=== PATIENT | female | born 1985 | race Caucasian/White ===

== ENCOUNTER 2020-04-22 07:00 | Emergency (ER) | payer BC ==
[2020-04-22] MEDS ORDERED: Alum Hydrox/Mag Hydrox/Simeth 15 ML, Lidocaine 2% 5 ML PO ONE ×2 (07:42)
[2020-04-22] MEDS ORDERED: Lactated Ringers 1,000 ML IV ONE (07:42)
[2020-04-22] MEDS ORDERED: Morphine 2 MG/ML SYRINGE IVPUSH ONE (07:43)
[2020-04-22] MEDS ORDERED: Famotidine 20 MG/2 ML SDV IVPUSH ONE (07:43)
[2020-04-22] MEDS ORDERED: Ondansetron 4 MG/2 ML SDV IVPUSH ONE (07:57)
[2020-04-22 08:25] LABS: CARBON DIOXIDE,CO2 28.9 mmol/L (21.0-32.0); POTASSIUM,K 3.4 mmol/L (3.5-5.1)
--- NOTE | 2020-04-22 08:55 | EDM.PDOC ---
ED HPI GENERAL MEDICAL PROBLEM - General Chief Complaint: Abdominal Pain Stated Complaint: ABDOMINAL PAIN Time Seen by Provider: 04/22/20 07:21 - History of Present Illness INITIAL COMMENTS - FREE TEXT/NARRATIVE: CHIEF COMPLAINT(S): Abdominal pain HISTORY OF PRESENT ILLNESS: This is a 34-year-old woman without any past medical history who comes to the emergency department with a chief complaint of abdominal pain. The patient states that for the last 2 days she has been experiencing epigastric and left upper quadrant pain which she describes as sharp and intermittent throbbing. She rates the pain as 8 out of [address] ates that she did have some associated nausea and vomiting x2 last night but did not have any bilious emesis or hematemesis. She states that she does not know any aggravating symptoms except that the pain worsens when she lies down. She denies any relieving symptoms. She has not yet tried any pain medication. She denies any fever, chills, diarrhea, melena or hematochezia. She states that no one else in the home is having the symptoms. She denies any vaginal bleeding, vaginal discharge, dysuria or hematuria. She states that she has never had this before. REVIEW OF SYSTEMS: Constitutional: Denies fever, chills. Eyes: Denies eye pain Ears, Nose, Mouth, & Throat: Denies earache Cardiovascular: Denies chest pain Respiratory: Denies shortness of breath Gastrointestinal: Positive for epigastric abdominal pain, nausea, vomiting. Denies diarrhea, hematochezia, hematemesis, bilious emesis Genitourinary: Denies hematuria dysuria, vaginal bleeding, vaginal discharge Skin:Denies a rash MSK: Denies joint pain Neurological: Denies blurred vision Psychiatric: Denies depression PAST MEDICAL HISTORY: As per history of present illness and as reviewed below otherwise noncontributory. SURGICAL HISTORY: As per history of present illness and as reviewed below otherwise noncontributory. LMP: 3 weeks ago SOCIAL HISTORY: As per history of present illness and as reviewed below otherwise noncontributory. FAMILY HISTORY: As per history of present illness and as reviewed below otherwise noncontributory. EXAMINATION OF ORGAN SYSTEMS/BODY AREAS: Constitutional: Blood pressure is 136/78, heart rate 81, respiratory rate 18 with an oxygen saturation 9 9% on room air. Temperature 36.7 General: Overall well-appearing woman who is in no acute distress. Psychiatric: Appropriate mood and affect. Eyes: No scleral icterus or conjunctival erythema ENMT: Moist mucous membranes. No pharyngeal erythema Cardiovascular: Regular, rate, and rhythm. No gallops, murmurs, or rubs. Bilateral upper extremity pulses symmetric and intact. No peripheral edema. No JVD. Respiratory: Lungs clear to auscultation bilaterally. No wheezes, rales, or rhonchi. Gastrointestinal: Soft, nondistended, tenderness to palpation in the right upper quadrant, epigastric region and left upper quadrant. No rebound or guarding. Negative Williamson's and McBurney's. Normoactive bowel sounds Genitourinary: No suprapubic tenderness no CVA tenderness Musculoskeletal: Normal range of motion. Skin: No lesions or abrasions. Neurological: Alert, GCS 15 strength and sensation grossly intact MEDICAL DECISION MAKING AND COURSE IN THE ED WITH INTERPRETATION/REVIEW OF DIAGNOSTIC STUDIES: This is a 34-year-old woman without any significant past medical history who comes to the emergency department with upper quadrant abdominal pain with normal vital signs. At this time differential includes gastritis, peptic ulcer disease, pancreatitis or cholecystitis. The patient is well-appearing with no Williamson sign. We will treat the patient symptomatically with 2 mg of IV morphine, 1 L of normal saline, GI cocktail, and famotidine. Will obtain labs including urine hCG, urinalysis, CBC, CMP, and lipase. We will reevaluate the patient. Laboratory: CBC is unremarkable. CMP reveals hypokalemia at 3.4, mild elevation in creatinine at 1.1, hyperglycemia at 118. AST, ALT, alkaline phosphatase and lipase are all normal. hCG is negative Urinalysis was a clean catch and was trace for leukocyte esterase, negative for nitrites, and negative for blood. WBC count 0-2. Interpretation: negative. On reevaluation, the patient reported improvement. At this time I did discuss the results of her work-up. I encouraged her to maintain adequate p.o. hydration given the elevated creatinine. In addition I did discuss with her that she should use [id number] famotidine 20 mg twice a day and Maalox as needed for pain. In addition I discussed that this could be early gallbladder disease and if she has any worsening of the right upper quadrant pain is unable to tolerate p.o. or develops a fever she needs to return to the emergency department. She was amenable to discharge at this time and had no further questions DISPOSITION: The patient was discharged home in stable condition. The patient will follow up with primary care physician in 1 week CONDITION: Fair PROCEDURES: None FINAL IMPRESSION(S)/DIAGNOSES: 1. Acute abdominal pain, likely gastritis Per Bee M.D. Abdominal Pain Score (Numeric/FACES): 8 - Related Data Allergies Allergy/AdvReac Type Severity Reaction Status Date / Time No Known Allergies Allergy Verified 04/22/20 07:20 Home Meds: Home Meds Famotidine [Pepcid] 20 mg PO BID #60 tablet 04/22/20 [Rx] Past Medical History - Past Health History Medical/Surgical History: Denies Medical/Surgical History Social & Family History - Family History Family Medical History: No Pertinent Family History - Tobacco Use Tobacco Use Status *Q: Never Tobacco User - Caffeine Use Caffeine Use: Reports: None - Recreational Drug Use Recreational Drug Use: No ED ROS GENERAL - Review of Systems Review Of Systems: See Below ED EXAM, GENERAL - Physical Exam Exam: See Below Course - Vital Signs Last Recorded V/S: Last Vital Signs Temp 36.7 C 04/22/20 07:21 Pulse 81 04/22/20 09:10 Resp 17 04/22/20 09:10 BP 127/66 04/22/20 09:10 Pulse Ox 98 04/22/20 09:10 - Orders/Labs/Meds Labs: Laboratory Tests 04/22/20 04/22/20 04/22/20 Range/Units 07:29 07:39 07:52 WBC 9.09 (4.0-11.0) K/uL RBC 4.87 (4.30-5.90) M/uL Hgb 14.8 (12.0-16.0) g/dL Hct 43.8 (36.0-46.0) % MCV 89.9 (80.0-98.0) fL MCH 30.4 (27.0-32.0) pg MCHC 33.8 (31.0-37.0) g/dL RDW Std Deviation 40.4 (28.0-62.0) fl RDW Coeff of Dino 12 (11.0-15.0) % Plt Count 202 (150-400) K/uL MPV 10.50 (7.40-12.00) fL Neut % (Auto) 80.1 H (48.0-80.0) % Lymph % (Auto) 11.4 L (16.0-40.0) % [place] % (Auto) 7.6 (0.0-15.0) % Eos % (Auto) 0.7 (0.0-7.0) % Baso % (Auto) 0.2 (0.0-1.5) % Neut # (Auto) 7.3 H (1.4-5.7) K/uL Lymph # (Auto) 1.0 (0.6-2.4) K/uL [place] # (Auto) 0.7 (0.0-0.8) K/uL Eos # (Auto) 0.1 (0.0-0.7) K/uL Baso # (Auto) 0.0 (0.0-0.1) K/uL Nucleated RBC % 0.0 /100WBC Nucleated RBCs # 0 K/uL Sodium (136-145) mmol/L Potassium (3.5-5.1) mmol/L Chloride (98-107) mmol/L Carbon Dioxide (21.0-32.0) mmol/L BUN (7.0-18.0) mg/dL Creatinine (0.6-1.0) mg/dL Est Cr Clr Drug Dosing mL/min Estimated GFR (MDRD) ml/min Glucose (74-106) mg/dL Calcium (8.5-10.1) mg/dL Total Bilirubin (0.2-1.0) mg/dL AST (15-37) IU/L ALT (14-63) IU/L Alkaline Phosphatase (46-116) U/L Total Protein (6.4-8.2) g/dL Albumin (3.4-5.0) g/dL Globulin (2.6-4.0) g/dL Albumin/Globulin Ratio (0.9-1.6) Lipase (73-393) U/L Urine Color YELLOW Urine Appearance CLEAR Urine pH 8.5 H (5.0-8.0) Ur Specific Amoret 1.025 (1.001-1.035) Urine Protein NEGATIVE (NEGATIVE) mg/dL Urine Glucose (UA) NEGATIVE (NEGATIVE) mg/dL Urine Ketones NEGATIVE (NEGATIVE) mg/dL Urine Occult Blood NEGATIVE (NEGATIVE) Urine Nitrite NEGATIVE (NEGATIVE) Urine Bilirubin NEGATIVE (NEGATIVE) Urine Urobilinogen 0.2 (<2.0) EU/dL Ur Leukocyte Esterase TRACE H (NEGATIVE) Urine RBC NONE SEEN (0-2/HPF) Urine WBC 0-2 (0-5/HPF) Ur Epithelial Cells FEW (NONE-FEW) Amorphous Sediment LIGHT (NEGATIVE) Urine Bacteria FEW (NEGATIVE) Urine Mucus LIGHT (NONE-MOD) Urine HCG, Qual NEGATIVE (NEGATIVE) 04/22/20 Range/Units 07:52 WBC (4.0-11.0) K/uL RBC (4.30-5.90) M/uL Hgb (12.0-16.0) g/dL Hct (36.0-46.0) % MCV (80.0-98.0) fL MCH (27.0-32.0) pg MCHC (31.0-37.0) g/dL RDW Std Deviation (28.0-62.0) fl RDW Coeff of Dino (11.0-15.0) % Plt Count (150-400) K/uL MPV (7.40-12.00) fL Neut % (Auto) (48.0-80.0) % Lymph % (Auto) (16.0-40.0) % [place] % (Auto) (0.0-15.0) % Eos % (Auto) (0.0-7.0) % Baso % (Auto) (0.0-1.5) % Neut # (Auto) (1.4-5.7) K/uL Lymph # (Auto) (0.6-2.4) K/uL [place] # (Auto) (0.0-0.8) K/uL Eos # (Auto) (0.0-0.7) K/uL Baso # (Auto) (0.0-0.1) K/uL Nucleated RBC % /100WBC Nucleated RBCs # K/uL Sodium 140 (136-145) mmol/L Potassium 3.4 L (3.5-5.1) mmol/L Chloride 102 (98-107) mmol/L Carbon Dioxide 28.9 (21.0-32.0) mmol/L BUN 12 (7.0-18.0) mg/dL Creatinine 1.1 H (0.6-1.0) mg/dL Est Cr Clr Drug Dosing 51.76 mL/min Estimated GFR (MDRD) 56.9 ml/min Glucose 118 H (74-106) mg/dL Calcium 10.0 (8.5-10.1) mg/dL Total Bilirubin 0.5 (0.2-1.0) mg/dL AST 11 L (15-37) IU/L ALT 21 (14-63) IU/L Alkaline Phosphatase 44 L (46-116) U/L Total Protein 7.3 (6.4-8.2) g/dL Albumin 4.1 (3.4-5.0) g/dL Globulin 3.2 (2.6-4.0) g/dL Albumin/Globulin Ratio 1.3 (0.9-1.6) Lipase 99 (73-393) U/L Urine Color Urine Appearance Urine pH (5.0-8.0) Ur Specific Amoret (1.001-1.035) Urine Protein (NEGATIVE) mg/dL Urine Glucose (UA) (NEGATIVE) mg/dL Urine Ketones (NEGATIVE) mg/dL Urine Occult Blood (NEGATIVE) Urine Nitrite (NEGATIVE) Urine Bilirubin (NEGATIVE) Urine Urobilinogen (<2.0) EU/dL Ur Leukocyte Esterase (NEGATIVE) Urine RBC (0-2/HPF) Urine WBC (0-5/HPF) Ur Epithelial Cells (NONE-FEW) Amorphous Sediment (NEGATIVE) Urine Bacteria (NEGATIVE) Urine Mucus (NONE-MOD) Urine HCG, Qual (NEGATIVE) Meds: Medications Discontinued Medications Generic Name Dose Route Start Last Admin Trade Name Mcq PRN Reason Stop Dose Admin Al Hydroxide/Mg Hydroxide 15 0 ml 04/22/20 07:42 04/22/20 07:51 ml/ Lidocaine HCl 5 ml PO 04/22/20 07:43 1 each ONETIME ONE Administration Famotidine 20 mg 04/22/20 07:43 04/22/20 07:51 Pepcid IVPUSH 04/22/20 07:44 20 mg ONETIME ONE Administration Lactated Ringer's 1,000 mls @ 999 mls/hr 04/22/20 07:42 04/22/20 07:51 Ringers, Lactated IV 04/22/20 08:42 999 mls/hr .BOLUS ONE Administration Morphine Sulfate 2 mg 04/22/20 07:43 04/22/20 07:51 Morphine IVPUSH 04/22/20 07:44 2 mg ONETIME ONE Administration Ondansetron HCl 4 mg 04/22/20 07:57 04/22/20 08:01 Zofran IVPUSH 04/22/20 07:58 4 mg ONETIME ONE Administration Departure - Departure Time of Disposition: 08:53 Disposition: Home, Self-Care 01 Condition: Fair Clinical Impression: Gastritis Qualifiers: Gastritis type: unspecified gastritis Chronicity: acute Gastritis bleeding: without bleeding Qualified Code(s): K29.00 - Acute gastritis without bleeding - Discharge Information *PRESCRIPTION DRUG MONITORING PROGRAM REVIEWED*: No *COPY OF PRESCRIPTION DRUG MONITORING REPORT IN PATIENT JOB: No Prescriptions: Famotidine [Pepcid] 20 mg PO BID #60 tablet Instructions: Gastritis, Adult, [id number] Referrals: Marvel Donaldson MD [Primary Care Provider] - Forms: ED Department Discharge Additional Instructions: Your evaluated today on an emergent basis. At this time your work-up was negative and your symptoms have improved. I do believe you are experiencing gastritis or reflux disease. I recommend picking up a prescription for Pepcid or famotidine which was sent to your pharmacy. Please take 20 mg twice a day. For acute episodes where the pain worsens you can take Maalox as needed. In addition if you have worsening of pain in the right side of your abdomen, have fevers, have blood in your stool or vomit please return to the emergency department. It is important that you follow-up with your primary care physician for continued management. Please make an appointment within 1 week. [facility] [address] [place] [id number] [address] [address] The patient is informed of any results of their evaluation and diagnostic workup and all questions are answered. They are given discharge instructions and return precautions. The patient is stable for discharge. The patient states they understand and agree with the plan and that they will return if their symptoms get worse or if they have any new concerns. The following information is given to patients seen in the emergency department who are being discharged to home. This information is to outline your options for follow-up care. We provide all patients seen in our emergency department with a follow-up referral. The need for follow-up, as well as the timing and circumstances, are variable depending upon the specifics of your emergency department visit. If you don't have a primary care physician on staff, we will provide you with a referral. We always advise you to contact your personal physician following an emergency department visit to inform them of the circumstance of the visit and for follow-up with them and/or the need for any referrals to a consulting sp ecialist. The emergency department will also refer you to a specialist when appropriate. This referral assures that you have the opportunity for follow-up care with a specialist. All of these measure are taken in an effort to provide you with optimal care, which includes your follow-up. Under all circumstances we always encourage you to contact your private physician who remains a resource for coordinating your care. When calling for follow-up care, please make the office aware that this follow-up is from your recent emergency room visit. If for any reason you are refused follow-up, please contact the [facility] Emergency Department at and asked to speak to the emergency department charge nurse. Sepsis Event Note (ED) - Evaluation Sepsis Screening Result: No Definite Risk - Focused Exam Vital Signs: Vital Signs Temp Pulse Resp BP Pulse Ox 04/22/20 09:10 81 17 127/66 98 04/22/20 08:23 72 112/85 96 04/22/20 07:21 36.7 C 81 18 136/78 99
== END 2020-04-22 09:16 | disposition home or self-care (01) ==
LOC: MW.ED 07:00
DX: K29.00 Acute gastritis without bleeding (principal)
CPT/HCPCS: 36415; 80053; 81001; 81025; 83690; 85025; 96374; 96375; 99284; A9270; J2270; J2405; J3490; J7120; 99283